=== PATIENT | female | born 1995 | race Hispanic/Latino ===

== ENCOUNTER 2016-11-12 07:54 | Emergency (ER) | payer OTHER ==
[~2016-11-12] VITALS: Ht 154.9 cm; Wt 100.0 kg
[2016-11-12] MEDS ORDERED: PRENTAB55 PO (08:12)
[2016-11-12] MEDS ORDERED: LIDO2GEL26 TOP (08:53)
[2016-11-12 09:04] VITALS: BP 128/75
== END 2016-11-12 09:07 | disposition home or self-care (01) ==
LOC: M ED 07:54
DX: O22.43 Hemorrhoids in pregnancy, third trimester (principal); Z79.899 Other long term (current) drug therapy; Z3A.35 35 weeks gestation of pregnancy

== ENCOUNTER 2016-11-18 21:33 | Emergency (ER) | payer OTHER ==
[~2016-11-18] VITALS: Ht 154.9 cm; Wt 90.9 kg
[~2016-11-18 21:33] MED LIST: LIDO2GEL26 TOP; PRENTAB55 PO
[2016-11-18 23:15] VITALS: BP 124/63
== END 2016-11-18 23:18 | disposition home or self-care (01) ==
LOC: M ED 21:33
DX: O26.893 Other specified pregnancy related conditions, third trimester (principal); R51 Headache; Z3A.36 36 weeks gestation of pregnancy

== ENCOUNTER 2016-12-08 11:42 | Outpatient (CLI) | payer OTHER ==
[~2016-12-08] VITALS: Ht 154.9 cm; Wt 90.0 kg
[2016-12-08 11:59] VITALS: BP 108/66
[2016-12-08 13:58] VITALS: BP 108/56
--- NOTE | 2016-12-08 17:05 | HPE ---
DATE OF ADMISSION: 12/08/2016 21-year-old 1, para 0, LMP 03/16/2017, EDC 12/21/2016, comes in to triage at 38-1 weeks of gestation for the pelvic pressure and hip pain. No contractions. No loss of fluid. LABORATORY DATA: O+, HIV negative, hep negative, RPR negative, rubella immune. Varicella immune. Pap normal. Urine negative. Gonorrhea and chlamydia are negative. 1-hour glucose early was 108. 1 hour 28-week GTT 108. GBS negative. On examination no distress. Symphysis fundus height is 39, vertex OA category one strip. No contractions. No vaginal loss or bleeding. Urine is 10/10, pH 7 negative negative, negative. Blood pressure 108/66, respirations 20, pulse 91, temperature 98.6. The rest of the examination is unremarkable. She is normocephalic, atraumatic. Neck: Full range of motion. Pupils equal and reactive to light. Has a category one strip. Distal pulses symmetric. No evidence of DVT, PE or superficial phlebitis. Chest is clear to bases. No wheezes or rhonchi. No CVA tenderness. Uterus is nontender. 39 symphysis fundus height. Vertex four quadrant bowel sounds are noted and no evidence of contractions. She has no rashes, lesions or pruritus. No arthralgia or myalgia. No complaint cough, wheeze, shortness of breath or dyspnea on exertion. No chest pain not bleeding. Neuro complete. No incontinency, urgency or frequency. No nausea, vomiting, diarrhea or constipation. No diabetic issues. No [employer] issues. Past surgical, family history is unremarkable. Does not smoke, drink abuse drugs. No domestic violence. She is and has good support at home. Review over an hour, there is no evidence of contractions, good accelerations. Category one strip. We gave her precautions including premature rupture of membranes bleeding decreased movement rupture, labor and when to call the provider. She has an appointment 48 hours with Tomy [facility], maintain the appointment as recommended and she was discharged undelivered.
== END 2016-12-08 14:30 | disposition home or self-care (01) ==
LOC: M LDO 11:42
PROVIDERS: ATTEND Obstetrics & Gynecology
DX: O26.893 Other specified pregnancy related conditions, third trimester (principal); Z3A.38 38 weeks gestation of pregnancy; R10.2 Pelvic and perineal pain; M25.559 Pain in unspecified hip

== ENCOUNTER 2020-12-26 09:17 | Emergency (ER) | payer OTHER, SELFPAY ==
[~2020-12-26] VITALS: Ht 154.9 cm; Wt 67.8 kg
[2020-12-26] MEDS ORDERED: CIPRODEX OTIC SUSP 7.5ML AD STA (09:57)
[2020-12-26] MEDS ORDERED: NAPROXEN 250 MG TAB PO ONE (10:00)
[2020-12-26] MEDS ORDERED: AUGMENTIN 875 MG TAB PO ONE (10:00)
[2020-12-26] MEDS ORDERED: CIPR7.5D5 AD (10:25)
[2020-12-26] MEDS ORDERED: AUGM875T28 PO (10:25)
[2020-12-26] MEDS ORDERED: PSEU120T19 PO (10:25)
[2020-12-26] MEDS ORDERED: FLON1SPR NARES (10:25)
[2020-12-26] MEDS ORDERED: NAPR-837 PO (10:25)
[2020-12-26 10:58] VITALS: BP 101/68
[2020-12-26 11:37] LABS: RSV AMPLIFICATION POSITIVE (NEGATIVE)
== END 2020-12-26 11:01 | disposition home or self-care (01) ==
LOC: M ED 09:17
DX: H66.91 Otitis media, unspecified, right ear (principal); H72.91 Unspecified perforation of tympanic membrane, right ear; R09.81 Nasal congestion; R05 Cough

== ENCOUNTER → 2022-04-23 | Outpatient (CLI) | payer OTHER ==
[~2022-04-23] MED LIST changes: +AUGM875T28 PO; +CIPR7.5D5 AD; +FLON1SPR NARES; +NAPR-837 PO; +PSEU120T19 PO
== END ==
LOC: M SLEEP 20:00
PROVIDERS: ATTEND Physician Assistant Medical
DX: G47.33 Obstructive sleep apnea (adult) (pediatric) (principal)

== ENCOUNTER → 2022-05-26 | Outpatient (CLI) | payer OTHER | LOC: M PLAIMG 11:02 | PROVIDERS: ATTEND Orthopaedic Surgery | DX: M53.2X1 Spinal instabilities, occipito-atlanto-axial region (principal) ==

== ENCOUNTER → 2023-01-08 | Outpatient (REF) | payer OTHER | LOC: M LAB REF 11:11 | PROVIDERS: ATTEND Nurse Practitioner Family | DX: J06.9 Acute upper respiratory infection, unspecified (principal) ==

== ENCOUNTER 2023-02-16 09:06 | Inpatient (IN) | payer OTHER ==
[~2023-02-16] VITALS: Ht 154.9 cm; Wt 95.6 kg
[2023-02-16] VITALS (34 sets, daily range): BP systolic 112–188; BP diastolic 57–102; O2SAT 97
[2023-02-16] MEDS ORDERED: METHYLERGONOVINE MALEATE 0.2MG/ML 1ML VIAL IM PRN (10:05)
[2023-02-16] MEDS ORDERED: OXYTOCIN INJ 10UNITS/ML 1ML VIAL IM PRN (10:05)
[2023-02-16] MEDS ORDERED: CARBOPROST TROMETHAMINE 250 MCG/ML AMP IM PRN (10:05)
[2023-02-16] MEDS ORDERED: OXYTOCIN DRIP 30 UNITS in IV 1 EA IV PRN ×4 (10:05)
[2023-02-16] MEDS ORDERED: LIDOCAINE 1% MDV 20ML VIAL INFIL PRN (10:05)
[2023-02-16] MEDS ORDERED: TRANEXAMIC ACID INJection 1,000 MG in NS 100 ML IV PRN (10:05)
[2023-02-16] MEDS ORDERED: PRENTAB9 PO (10:16)
[2023-02-16 10:45] LABS: HEMATOCRIT 45.1 % (36.0-47.0); HEMOGLOBIN 15.1 g/dl (12.0-15.5); MEAN CORPUSCULAR HEMOGLOBIN 29.2 pg (27.0-33.0); MEAN CORPUSCULAR HGB CONC 33.5 g/dl (32.0-36.5); MEAN CORPUSCULAR VOLUME 87.1 fl (80.0-96.0); PLATELET COUNT, AUTOMATED 167 10^3/uL (150-450); RED BLOOD COUNT 5.18 10^6/uL (4.00-5.40); WHITE BLOOD COUNT 13.6 10^3/uL (4.0-10.0)
[2023-02-16] MEDS: LR 1,000 ML IV SCH ×2 (11:08→15:48)
[2023-02-16] MEDS ORDERED: NALOXONE INJ 0.4MG/1ML VIAL IV PRN (11:10)
[2023-02-16] MEDS ORDERED: ONDANSETRON 4MG 2ML VIAL IV PRN (11:10)
[2023-02-16] MEDS ORDERED: ePHEDrine SULFATE 25 MG/5 ML(5MG/ML) SYRINGE IVP PRN (11:10)
[2023-02-16] MEDS ORDERED: LR 500 ML IV PRN (11:10)
[2023-02-16] MEDS ORDERED: EPIDURAL/PCA KEYS XX PRN (11:10)
[2023-02-16] MEDS ORDERED: diphenhydrAMINE 50MG/ML VIAL IV PRN (11:10)
[2023-02-16] MEDS: FENTANYL/ROPIVACAINE/NACL BAG 100 ML EPIDURAL SCH ×2 (11:35→21:10)
[2023-02-16] MEDS ORDERED: ACETAMINOPHEN 500 MG TAB PO PRN (16:50)
[2023-02-16] MEDS ORDERED: METHYLERGONOVINE MALEATE 0.2 MG TAB PO PRN (16:50)
[2023-02-16] MEDS ORDERED: OXYTOCIN DRIP 30 UNITS in IV 1 EA IV SCH (16:50)
[2023-02-16] MEDS ORDERED: DOCUSATE SODIUM 100MG CAPSULE PO PRN (16:50)
[2023-02-16] MEDS ORDERED: IBUPROFEN 600MG TAB PO PRN (16:50)
[2023-02-16] MEDS ORDERED: DIBUCAINE 1% OINTMENT 30GM TOP PRN (16:50)
[2023-02-16] MEDS ORDERED: ACETAMINOPHEN TAB 650MG DOSE (2X325MG) PO PRN (16:50)
[2023-02-17] MEDS: IBUPROFEN 800 MG TAB PO PRN ×3 (00:54→17:59)
[2023-02-17] MEDS: LR 1,000 ML IV SCH (02:05)
[2023-02-17 06:00] VITALS: BP 107/56; O2SAT 96
[2023-02-17] MEDS: PRENATAL VITAMINS CHEWABLE TABLET PO SCH (09:00)
[2023-02-17 18:00] VITALS: BP 127/70; O2SAT 100
[2023-02-18 06:00] VITALS: BP 113/70; O2SAT 98
[2023-02-18] MEDS: PRENATAL VITAMINS CHEWABLE TABLET PO SCH (08:20)
[2023-02-18] MEDS: IBUPROFEN 800 MG TAB PO PRN (08:24)
[2023-02-18] MEDS ORDERED: MEASLES,MUMPS,RUBELLA VACCINE INJ (MMR-II) SC.IMMUN ONE (09:00)
== END 2023-02-18 12:25 | disposition home or self-care (01) | DRG 807 ==
LOC: M LDO 09:06 → M LDI 10:02 → M OBS 19:45
PROVIDERS: ADMIT Obstetrics & Gynecology; ATTEND Advanced Practice Midwife
PROC: 10E0XZZ Delivery of Products of Conception, External Approach (ICD-10-PCS; principal; 2023-02-16)
PROC: 10907ZC Drainage of Amniotic Fluid, Therapeutic from Products of Conception, Via Natural or Artificial Opening (ICD-10-PCS; 2023-02-16)
DX: O48.0 Post-term pregnancy (principal); Z37.0 Single live birth; Z3A.40 40 weeks gestation of pregnancy; O76 Abnormality in fetal heart rate and rhythm complicating labor and delivery; O77.0 Labor and delivery complicated by meconium in amniotic fluid; O66.0 Obstructed labor due to shoulder dystocia